=== PATIENT | male | born 2000 | race African-American/Black ===

== ENCOUNTER 2024-12-23 17:14 | Inpatient (IN) | payer MEDICAID ==
[~2024-12-23] VITALS: Ht 180.3 cm; Wt 76.7 kg
[~2024-12-23 17:14] MED LIST: HYDR500C23 PO; TOPUD PO
[2024-12-23 17:21] VITALS: O2SAT 100
[2024-12-23 18:42] LABS: BASOPHILS % 0.9 % (0.0-2.0); EOSINOPHILS % 1.1 % (0.0-5.0); HEMATOCRIT. 28.2 % (42.0-52.0); HEMOGLOBIN. 9.5 g/dL (14.0-18.0); LYMPHOCYTES % 20.1 % (20.0-50.0); MEAN PLATELET VOLUME 7.4 fl (7.4-10.4); MONOCYTES % 13.8 % (2.0-8.0); NEUTROPHILS % 64.1 % (40.0-76.0); PLATELET 464 x1000/uL (130-400); RED BLOOD CELL COUNT 3.96 mill/uL (4.7-6.1); RED CELL DISTRIBUTION WIDTH 28.3 % (11.6-14.6)
[2024-12-23 18:43] LABS: ADD RBC MORPHOLOGY YES; CREATININE 0.8 mg/dL (0.6-1.3); UREA NITROGEN BLOOD 14 mg/dL (9-23)
[2024-12-23 18:44] LABS: TROPONIN I HIGH SENSITIVITY < 4 ng/L (3.0-53)
[2024-12-23 19:08] LABS: PLATELET ESTIMATE NORMAL
[2024-12-23] MEDS: SODIUM CHLORIDE 0.9% 1,000 ML IV ONE (19:33)
[2024-12-23] MEDS: MORPHINE SULFATE 2 MG/ML INJ (NOT FOR IM USE) IV SCH (19:34)
[2024-12-23] MEDS ORDERED: IPRATROPIUM/ALBUTEROL 0.5-3(2.5)MG/3ML NEB HHN PRN (20:00)
[2024-12-23] MEDS ORDERED: GUAIFENESIN 200MG/10ML SUGAR FREE UDC PO PRN (20:00)
[2024-12-23] MEDS ORDERED: ONDANSETRON HCL 4MG/2ML INJ IV PRN (20:00)
[2024-12-23] MEDS ORDERED: DEXTROSE 50% WATER 50ML SYRINGE IV PRN (20:00)
[2024-12-23] MEDS ORDERED: CLONIDINE 0.1MG TABLET PO PRN (20:00)
[2024-12-23] MEDS ORDERED: LORAZEPAM 0.5MG TABLET PO PRN (20:00)
[2024-12-23] MEDS ORDERED: ACETAMINOPHEN 325MG TABLET PO PRN (20:00)
[2024-12-23 20:14] LABS: TROPONIN I HIGH SENSITIVITY < 4 ng/L (3.0-53)
[2024-12-23] MEDS: INSULIN LISPRO 100 UNITS/ML SUBCUT SCH (21:00)
[2024-12-23] MEDS: BLOOD SUGAR DIAGNOSTIC STRIP TEST SCH (21:00)
[2024-12-23 21:11] LABS: SICKLE CELL SCREEN POSITIVE (NEGATIVE)
[2024-12-23] MEDS: SODIUM CHLORIDE 0.9% 1,000 ML IV SCH (21:29)
[2024-12-23 22:47] LABS: CLARITY URINE CLEAR (CLEAR); COLOR URINE YELLOW (YELLOW); GLUCOSE URINE NEGATIVE (NEGATIVE); KETONES URINE NEGATIVE (NEGATIVE); LEUKOCYTE ESTERASE URINE NEGATIVE (NEGATIVE); NITRITE URINE NEGATIVE (NEGATIVE); OCCULT BLOOD URINE NEGATIVE (NEGATIVE); PH URINE 6.0 (4.5-8.0); PROTEIN URINE NEGATIVE (NEGATIVE); SPECIFIC GRAVITY URINE 1.009 (1.005-1.030); UROBILINOGEN URINE 1.0 E.U./dL (0.2-1.0)
[2024-12-23 22:55] LABS: *AMPHETAMINES SCREEN URINE NEGATIVE (NEGATIVE); *BARBITURATES SCREEN URINE NEGATIVE (NEGATIVE); *BENZODIAZEPINES SCREEN URINE NEGATIVE (NEGATIVE); *COCAINE SCREEN URINE NEGATIVE (NEGATIVE)
[2024-12-23 22:56] LABS: CANNABINOID URINE SCREEN NEGATIVE (NEGATIVE); ECSTASY MDMA SCREEN URINE NEGATIVE (NEGATIVE); METHADONE URINE SCREEN NEGATIVE (NEGATIVE); OPIATES URINE SCREEN PRESUMPTIVE POSITIVE (NEGATIVE); PHENCYCLIDINE URINE SCREEN NEGATIVE (NEGATIVE)
[2024-12-23 23:40] VITALS: BP 124/81; PULSE 67; RESP 18; TEMP 36.5848
[2024-12-23] MEDS ORDERED: INFLUENZA VACCINE 05/PF 0.5 ML SYRINGE IM ONE (23:45)
[2024-12-24] VITALS: BP 121/50; PULSE 61; TEMP 36.6
[2024-12-24] MEDS ORDERED: MELA10CA PO (00:47)
[2024-12-24] MEDS ORDERED: NICO-786 TP ×2 (00:47→19:09)
[2024-12-24] MEDS: ACETAMINOPHEN 325MG TABLET PO PRN (01:46)
[2024-12-24] MEDS: MELATONIN 3MG TABLET PO NR (01:46)
[2024-12-24] MEDS: FAMOTIDINE 20MG TABLET PO SCH (01:46)
[2024-12-24] MEDS: NICOTINE 7MG PATCH TD SCH (01:49)
[2024-12-24 04:00] VITALS: BP 98/48; PULSE 56; TEMP 36.6
[2024-12-24 05:35] LABS: CREATININE 0.7 mg/dL (0.6-1.3); UREA NITROGEN BLOOD 9 mg/dL (9-23)
[2024-12-24 05:36] LABS: BILIRUBIN TOTAL 2.1 mg/dL (0.1-1.0)
[2024-12-24 05:37] LABS: ASPARTATE AMINOTRANSFERASE 93 IU/L (<34); BILIRUBIN DIRECT 0.7 mg/dL (<=3.0); PHOSPHORUS 2.9 mg/dL (2.5-4.9)
[2024-12-24 05:38] LABS: PROTEIN TOTAL 7.0 g/dL (6.0-8.3)
[2024-12-24 06:29] LABS: HEMATOCRIT. 26.0 % (42.0-52.0); HEMOGLOBIN. 8.5 g/dL (14.0-18.0); MEAN PLATELET VOLUME 7.6 fl (7.4-10.4); PLATELET 392 x1000/uL (130-400); RED BLOOD CELL COUNT 3.63 mill/uL (4.7-6.1); RED CELL DISTRIBUTION WIDTH 28.3 % (11.6-14.6)
[2024-12-24 08:00] VITALS: BP 104/43; PULSE 68; RESP 18; TEMP 36.5; O2SAT 100
[2024-12-24] MEDS ORDERED: NALOXONE HCL 0.4MG/ML VIAL IV PRN (10:00)
[2024-12-24] MEDS: SODIUM CHLORIDE 0.9% 1,000 ML IV SCH (10:10)
[2024-12-24 12:00] VITALS: BP 128/53; PULSE 65; RESP 18; TEMP 36.5; O2SAT 100
[2024-12-24 16:00] VITALS: BP 117/32; PULSE 66; RESP 18; TEMP 36.7; O2SAT 100
[2024-12-24] MEDS: DOCUSATE SODIUM 100MG CAPSULE PO PRN (16:15)
[2024-12-24] MEDS ORDERED: HYDR500C23 PO (19:09)
[2024-12-24 20:00] VITALS: BP 118/29; PULSE 57; RESP 18; TEMP 36.6; O2SAT 97
[2024-12-24 20:22] LABS: BAND% 2.0 % (1.0-6.0); EOSINOPHILS % MANUAL 1.0 % (0.0-5.0); LYMPHOCYTES % MANUAL 20.0 % (20.0-50.0); MONOCYTES % MANUAL 15.0 % (2.0-8.0); NEUTROPHILS % MANUAL 62.0 % (45.0-75.0); NUCLEATED RED BLOOD CELLS 4 /100 WBC; PLATELET ESTIMATE NORMAL
[2024-12-24] MEDS: LIDOCAINE 5% PATCH TOP SCH (20:23)
[2024-12-24] MEDS: MELATONIN 3MG TABLET PO SCH (20:23)
[2024-12-24] MEDS: MORPHINE SULFATE 2 MG/ML INJ (NOT FOR IM USE) IV PRN (20:25)
[2024-12-24] MEDS ORDERED: NICOTINE 7MG PATCH TD SCH (22:00)
[2024-12-25] VITALS: BP 113/47; PULSE 74; RESP 19; TEMP 36.1; O2SAT 100
[2024-12-25 04:00] VITALS: BP 95/52; PULSE 65; RESP 19; TEMP 36.4; O2SAT 99
[2024-12-25 08:00] VITALS: BP 98/45; PULSE 57; RESP 18; TEMP 36.5; O2SAT 98
[2024-12-25 08:16] LABS: HEMATOCRIT. 27.3 % (42.0-52.0); HEMOGLOBIN. 9.1 g/dL (14.0-18.0); MEAN PLATELET VOLUME 7.2 fl (7.4-10.4); PLATELET 382 x1000/uL (130-400); RED BLOOD CELL COUNT 3.81 mill/uL (4.7-6.1); RED CELL DISTRIBUTION WIDTH 28.5 % (11.6-14.6)
[2024-12-25 08:36] LABS: CREATININE 0.7 mg/dL (0.6-1.3); UREA NITROGEN BLOOD 8 mg/dL (9-23)
[2024-12-25 08:38] LABS: ASPARTATE AMINOTRANSFERASE 50 IU/L (<34); BILIRUBIN DIRECT 0.8 mg/dL (<=3.0); BILIRUBIN TOTAL 2.2 mg/dL (0.1-1.0); PROTEIN TOTAL 7.6 g/dL (6.0-8.3)
[2024-12-25] MEDS ORDERED: FOLI-43 MT (10:39)
[2024-12-25] MEDS ORDERED: HYDR-4009 PO ×2 (10:39→11:08)
[2024-12-25] MEDS ORDERED: LIDO700A30 TOP (10:39)
[2024-12-25] MEDS ORDERED: IBUP-2029 PO (10:39)
[2024-12-25 12:00] VITALS: BP 127/56; PULSE 68; RESP 18; TEMP 36.5; O2SAT 98
[2024-12-25 12:14] VITALS: BP 127/56; PULSE 68; RESP 18; TEMP 97.7
[2024-12-26 16:29] LABS: LYMPHOCYTES % MANUAL 30.0 % (20.0-50.0); MONOCYTES % MANUAL 11.0 % (2.0-8.0); NEUTROPHILS % MANUAL 59.0 % (45.0-75.0); PLATELET ESTIMATE NORMAL
== END 2024-12-25 14:45 | disposition home or self-care (01) | DRG 662 ==
LOC: ER 17:14 → 6WST 18:49
PROVIDERS: ADMIT Internal Medicine; ATTEND Internal Medicine
DX: D57.00 Hb-SS disease with crisis, unspecified (principal); D72.829 Elevated white blood cell count, unspecified; F12.10 Cannabis abuse, uncomplicated; D50.9 Iron deficiency anemia, unspecified; D75.838 Other thrombocytosis; F17.210 Nicotine dependence, cigarettes, uncomplicated; Z91.148 Patient's other noncompliance with medication regimen for other reason; Z79.899 Other long term (current) drug therapy
CPT/HCPCS: 36415; 71045; 80048; 80076; 80305; 81003; 82962; 83036; 83540; 83550; 83735; 84100; 84484; 85025; 85044; 85660; 86850; 86870; 86900; 93005; 99285; A4606; J2270; J7030